=== PATIENT | female | born 1980 | race Caucasian/White ===

== ENCOUNTER 2017-02-10 05:57 | Inpatient (IN) ==
[2017-02-10] MEDS ORDERED: MEPERIDINE 50 MG/1 ML VIAL IM PRN (06:25)
[2017-02-10] MEDS ORDERED: ONDANSETRON 4 MG/2 ML VIAL IV PRN ×2 (06:25→08:43)
--- NOTE | 2017-02-10 06:27 | History and Physical Update ---
History and Physical Update - History and Physical H&P was reviewed, the patient examined and there: are no changes in the patients condition since last H&P was completed. - Dictation Physical: refer to scanned H&P - Physical Exam Mental Status: alert and oriented Heart: regular rate and rhythm Lung: clear to auscultation Abdomen: within normal limits Vitals: within normal limits History and Physical Changes: 39 weeks for repeat C/S, BTL
[2017-02-10] MEDS ORDERED: LACTATED RINGERS 1,000 ML IV SCH ×2 (06:30→09:00)
[2017-02-10] MEDS ORDERED: CITRIC ACID/SODIUM CITRATE 30 ML UDCUP PO ONE (06:31)
[2017-02-10] MEDS ORDERED: FAMOTIDINE 20 MG/2 ML VIAL IV ONE (06:31)
[2017-02-10] MEDS ORDERED: CLINDAMYCIN INJ 900 MG in PREMIX 1 EACH IV ONE (06:38)
[2017-02-10] MEDS ORDERED: OXYTOCIN/LR 20 UNIT/1,000 ML BAG IV ONE ×2 (06:39→08:43)
[2017-02-10 07:09] LABS: Basophils % 0.2 % (0.0-0.8); Eosinophils # 0.1 10*3/uL (0.0-0.87); Eosinophils % 0.9 % (0.00-10.9); Hematocrit 32.9 VOL% (35.7-47.0); Hemoglobin 10.8 GM/DL (12.0-16.0); Immature Granulocytes % 0.5 %; Immature Granulocytes Absolute 0.05 #; Lymphocytes # 2.6 10*3/uL (1.4-4.0); Lymphocytes % 28.5 % (21.3-54.2); Mean Corpuscular HGB Conc 32.8 GM/DL (32-36); Mean Corpuscular Hemoglobin 27 PG (27-34); Mean Corpuscular Volume 83.1 FL (87-102); Mean Platelet Volume 11.5 FL (9.6-12.0); Monocytes # 0.6 10*3/uL (0.11-0.8); Monocytes % 5.9 % (1.7-12.7); Neutrophils # 5.9 10*3/uL (1.4-7.4); Platelet Count 191 T/CUMM (130-400); Red Blood Count 3.96 MC/CUMM (3.8-5.5); Red Cell Distribution Width 14.8 % (9.3-17.3); White Blood Count 9.3 T/CUMM (4-12)
[2017-02-10] MEDS ORDERED: PROPOFOL 200 MG/20 ML VIAL IV ONE (07:30)
[2017-02-10] MEDS ORDERED: ONDANSETRON 4 MG/2 ML VIAL ONE (07:30)
[2017-02-10] MEDS ORDERED: SUCCINYLCHOLINE 200 MG/10 ML VIAL ONE (07:30)
[2017-02-10] MEDS ORDERED: PHENYLEPHRINE 1 MG/10 ML SYRINGE IV ONE (07:30)
[2017-02-10] MEDS ORDERED: METHYLERGONOVINE 0.2 MG/1 ML AMP ONE (07:58)
[2017-02-10] MEDS ORDERED: RHO(D) IMMUNE GLOBULIN 300 MCG SYRINGE IM ONE (08:43)
[2017-02-10] MEDS ORDERED: SIMETHICONE CHEW 80 MG TABLET PO PRN (08:43)
[2017-02-10] MEDS ORDERED: ACETAMINOPHEN 325 MG TABLET PO PRN (08:43)
[2017-02-10] MEDS ORDERED: oxyCODONE/ACETAMINOPHEN 5-325 MG TABLET PO PRN (08:47)
--- NOTE | 2017-02-10 08:51 | Operative Note ---
Date of procedure: 02/10/17 Pre-op diagnosis: 39wks; prev C/S; AMA;desires sterilization;nevus, left lower abdominal wall Post-op diagnosis: same Procedure: Repeat LTCS with delivery of a viable 8#13 oz female ; Intraoperative application of Filshie clips; Excision of nevus of left lower abdominal wall After informed consent was obtained the patient was taken to the labor and delivery OR where she was placed in supine position with left lateral tilt after administration of the subarachnoid block by members of the anesthesia department. A high spinal block resulted and pt required intubation. See Anesthesia record. The patient was then quickly sterilely prepped and draped in the usual customary fashion. A Salinas catheter had been placed to bedside drainage. A low transverse skin incision was made through the old cicatrix. Fibrosis of the tissues was encountered consistent with patient's previous C- section. Incision was carried through the subcutaneous tissue and Clayton's fascia to the anterior rectus fascia. Rectus muscles are bifurcated in the midline. Peritoneum was carefully entered. A bladder flap was created. The bladder blade was place in the bladder flap. A low transverse myotomy incision was then performed. Uterine cavity was entered with careful dissection. The was found in the cephalic presentation and delivered by the usual cephalic delivery technique without difficulty. The baby was bulb suctioned on the operative field. The cord was doubly clamped and cut. The infant was handed to personnel in attendance. Cord blood was collected. The placenta was manually extracted and sent to pathology for evaluation. The uterus is brought out of the abdominal cavity onto the abdominal wall. Uterine cavity was gently curetted with a moistened lap sponge. The cervix was noted to be dilated. Myotomy incision was repaired with a running interlocking stitch of 0 chromic suture from left to right and from right to left. After assuring adequate myotomy closure the adnexa were inspected and found to be without evidence pathology. The abdominal gutters were irrigated with normal saline. We did encounter initial uterine atony that resolved with IV Pitocin and IM Methergine. The fallopian tubes and ovaries were inspected and found to be without evidence pathology. A Filshie clip was placed in the midportion of the fallopian tube on the left side with care to include the entire diameter of the tube within the boundary of the clip. A similar procedure was repeated on the patient's right side Uterus was carefully replaced into the abdominal cavity. The myometrium incision was again inspected. It was found to be hemostatic. Peritoneum was closed with a running stitch of 3-0 Vicryl. Rectus muscles were noted be hemostatic. The fascia was closed in running fashion from left right and from right to left with 0 Vicryl suture. The sutures tied securely at the midline. Adequate fascial closure was assured. Clayton's fascia was reapproximated with a running stitch of 3-0 Vicryl. Skin edges were reapproximated with surgical surgical steel jessica. After obtaining consent from pt's , an ~ 1 cm nevus of the left lower abdominal wall was carefully excised and sent to path. The excision site was made hemostatic with electrocautery. The site was cleansed, Neosporin was placed and site was covered with a bandage. The low transverse skin wound was sterilely cleansed and dressed in the usual and customary fashion. Patient tolerated the procedure well and was transferred to recovery in stable condition. Anesthesia: GETA, spinal Surgeon / Physician: Alyson Fong Estimated blood loss: other (650cc) Specimens: other (placenta to path; cord blood to lab; nevus to path) Condition: stable Disposition: no change Results - Labs CBC & BMP: 02/10/17 07:04 Lab Results: I have reviewed the past 24 hour labs Discharge Plan - Discharge Medications No Action No122/Iron/Folic Acid [ Multi Tablet] 1 tablet PO DAILY - Follow Up or Referral - Forms/Instructions
--- NOTE | 2017-02-10 09:10 | Anesthesia Post-Op ---
Anesthesia Post OP - Post Ansesthetic Evaluation Patient seen in post op: Yes Resp: within normal limits CV: within normal limits Mental: within normal limits Temp: within normal limits [id number]: within normal limits Nausea and Vomiting: within normal limits Pain: within normal limits
[2017-02-10] MEDS ORDERED: MORPHINE 10 MG/10 ML VIAL ONE (11:01)
[2017-02-10] MEDS ORDERED: MIDAZOLAM 2 MG/2 ML VIAL ONE (11:01)
[2017-02-10 14:44] LABS: Apearance,Urine Clear (Clear); Bilirubin,Urine Negative (Negative); Blood, Urine NEGATIVE (Negative); Glucose,Urine (UA) Negative (Negative); Ketones,Urine 100 mg/dL (Negative); Mucus,Urine Occasional /LPF (Occasional); Nitrite,Urine Negative (Negative); Protein,Urine Negative; RBC,Urine 1 /HPF (0-4); Urine Color Yellow (Yellow); Urine Specific Gravity 1.015 (1.001-1.035); WBC,Urine <1 /HPF (0-6)
[2017-02-10 14:45] LABS: Urine Urobilinogen 0.2 EU/DL (0.2-1.0)
[2017-02-10] MEDS: CLINDAMYCIN INJ 900 MG in PREMIX 1 EACH IV SCH ×2 (16:01→23:25)
[2017-02-10] MEDS: DOCUSATE SODIUM 100 MG CAPSULE PO SCH (20:21)
[2017-02-11 06:35] LABS: Basophils % 0.1 % (0.0-0.8); Eosinophils % 0.4 % (0.00-10.9); Hematocrit 29.1 VOL% (35.7-47.0); Hemoglobin 9.1 GM/DL (12.0-16.0); Immature Granulocytes % 0.4 %; Immature Granulocytes Absolute 0.04 #; Lymphocytes # 1.8 10*3/uL (1.4-4.0); Mean Corpuscular HGB Conc 31.3 GM/DL (32-36); Mean Corpuscular Hemoglobin 27 PG (27-34); Mean Corpuscular Volume 86.1 FL (87-102); Mean Platelet Volume 11.6 FL (9.6-12.0); Monocytes # 0.7 10*3/uL (0.11-0.8); Monocytes % 6.3 % (1.7-12.7); Neutrophils # 8.7 10*3/uL (1.4-7.4); Neutrophils % 76.8 % (38.7-73.9); Platelet Count 179 T/CUMM (130-400); Red Blood Count 3.38 MC/CUMM (3.8-5.5); Red Cell Distribution Width 14.7 % (9.3-17.3); White Blood Count 11.3 T/CUMM (4-12)
[2017-02-11] MEDS: DOCUSATE SODIUM 100 MG CAPSULE PO SCH ×3 (08:55→21:05)
[2017-02-11] MEDS: MAGNESIUM HYDROXIDE SUSP 30 ML UDCUP PO PRN ×2 (09:02→21:06)
[2017-02-11] MEDS: MULTIVITAMIN (PRENATAL) TABLET PO SCH (09:03)
[2017-02-11] MEDS: IBUPROFEN 800 MG TABLET PO PRN ×2 (13:16→21:06)
--- NOTE | 2017-02-11 15:16 | Pathology Report from [facility] ---
[facility] – [place] ACCESSION # : [id number] PATIENT NAME : Miguel Nye ORDERING DR : MARTIN ORLANDO, CLINICAL HX: Term @ 39.1 wks gestation, repeat C/S POST-OP DX: Same SPECIMEN INFO: #1 Placenta #2 Skin tag GROSS DESCRIPTION: The specimen is received fresh in two parts labeled CRISTA NYE. Part #1 consists of a 598.0 gm placenta measuring 17.5 x 20.5 x 2.3 cm. The membranes are pink-hayes and translucent. The umbilical cord measures 29.0 cm, contains three vessels and is eccentrically inserted. The surface is blue-gambino with an area of plaque noted measuring 3.8 x 2.3 cm. The maternal surface displays mildly disrupted cotyledons with few scattered calcifications seen. Sectioning reveals no abnormalities. Sections submitted: (1A) membranes and cord, (B) and maternal surfaces.Part #2 SKIN TAG consists of a 1.4 x 0.9 x 0.8 cm pink-hayes polypoid lesion, sectioned and submitted in cassette #2. DIAGNOSIS FOR MIGUEL NYE: #1 PLACENTA, 39 WEEKS GESTATIONAL AGE, SECTION: Mature placenta, 598 gms trimmed weight. Subchorionic fibrin deposition. Chorangiosis. Trivascular umbilical cord, 29 cm in length.#2 SKIN TAG, EXCISION: Congenital-type compound nevus. COLLECTED DATE: 02/10/2017 [facility] REPORT DATE: 02/11/2017 ELECTRONICALLY SIGNED BY: Lesley Carcamo M.D. 02/11/2017 - 14:36:34 [id number]
[2017-02-11] MEDS ORDERED: BISACODYL 10 MG SUPP RECTAL PRN (20:29)
[2017-02-12] MEDS: IBUPROFEN 800 MG TABLET PO PRN (04:29)
[2017-02-12 07:46] VITALS: BP 106/61
[2017-02-12] MEDS: DOCUSATE SODIUM 100 MG CAPSULE PO SCH (08:53)
[2017-02-12] MEDS: MULTIVITAMIN (PRENATAL) TABLET PO SCH (08:53)
== END 2017-02-12 12:40 | disposition home or self-care (01) | DRG 766 ==
LOC: N.LDOUT 05:57 → N.LD 07:09 → N.OB 11:53
PROVIDERS: ADMIT Obstetrics & Gynecology; ATTEND Obstetrics & Gynecology